=== PATIENT | female | born 1985 | race Caucasian/White ===

== ENCOUNTER 2016-11-18 18:16 | Emergency (ER) | payer BC ==
[2016-11-18 18:40] LABS: Bilirubin Negative (Negative); Blood, Urine Trace (Negative); Clarity Clear (Clear); Glucose, Urine (Dipstick) Negative (Negative); Leukocyte Negative (Negative); Nitrite Negative (Negative); Protein, Urine (Dipstick) 30 mg/dL (Neg-Trace); Urobilinogen 0.2 mg/dL (0.2-1.0); pH, Urine 7.5 (5.0-9.0)
[2016-11-18 18:50] LABS: Bacteria/HPF Rare-Few HPF (None Seen); RBC/HPF 0-3 HPF (0-3); Squamous Epithelial 0-3 HPF (0-3); WBC/HPF 0-3 HPF (0-3)
[2016-11-18 18:51] LABS: Pregu Control Bar Appear? YES (CONTROL BAR)
[2016-11-18] MEDS ORDERED: Dicyclomine HCl 20 mg/2 ml Ampule ONE (19:02)
[2016-11-18] MEDS ORDERED: Ketorolac Tromethamine 30 MG/ML VIAL ONE (19:02)
[2016-11-18] MEDS ORDERED: Sodium Chloride 0.9% 1,000 ML ONE (19:03)
[2016-11-18] MEDS ORDERED: Pantoprazole 40 MG VIAL ONE (19:03)
[2016-11-18] MEDS ORDERED: Sodium Chloride 0.9% 100 ML ONE (19:04)
[2016-11-18 19:27] LABS: #Basophils 0.1 thou/uL (0.0-0.2); #Lymphocytes 1.3 thou/uL (1.20-3.40); #Monocytes 0.5 thou/uL (0.11-0.59); #Neutrophils 12.4 thou/uL (1.40-6.50); %Basophils 0.4 % (0.0-1.0); %Eosinophils 0.1 % (0.0-10.0); %Lymphocytes 9.3 % (21.0-51.0); %Monocytes 3.6 % (0.0-10.0); %Neutrophils 86.6 % (42.0-75.0); Hemoglobin 14.2 g/dL (12.0-16.0); Mean Corpuscular HGB CONC 32.7 g/dL (32.0-36.0); Mean Corpuscular Hemoglobin 29.7 pg (27.0-31.0); Mean Platelet Volume 6.6 fL (7.4-10.4); Platelet Count 383 thou/uL (130-400); RBC Distribution Width 11.9 % (11.5-14.5); Red Blood Cell (RBC) Count 4.77 mill/uL (4.20-5.40); White Blood Cell (WBC) Count 14.3 thou/uL (4.8-10.8)
[2016-11-18] MEDS ORDERED: Ondansetron HCl/PF 4 MG/2 ML Vial ONE (19:38)
[2016-11-18 19:39] LABS: ALT (SGPT) 28 U/L (0-55); AST (SGOT) 29 U/L (5-34); Albumin 4.5 g/dL (3.5-5.0); Alkaline Phosphatase 73 U/L (40-150); Anion Gap 18 mmol/L (10-20); BUN (Urea Nitrogen) 9 mg/dL (7.0-18.7); Bilirubin, Total 0.4 mg/dL (0.2-1.2); Calc. Creatinine Clearance 0 mL/min (70-130); Calcium 9.6 mg/dL (7.8-10.44); Carbon Dioxide 17 mmol/L (22-29); Chloride 104 mmol/L (98-107); Estimated GFR-MDRD 90; Globulin 3.4 g/dL (2.4-3.5); Glucose 109 mg/dL (70-105); Lipase 23 U/L (8-78); Potassium 4.4 mmol/L (3.5-5.1); Protein, Total 7.9 g/dL (6.0-8.3); Sodium 135 mmol/L (136-145)
[2016-11-18] MEDS ORDERED: HYDROcodone/Acetaminophen 7.5/325 mg Tablet ONE ×2 (20:25)
--- NOTE | 2016-11-18 21:07 | CT ---
CT ABDOMEN AND PELVIS WITHOUT CONTRAST 11/18/16 COMPARISON: None. HISTORY: Left lower quadrant abdominal pain radiating to the back that began 5.5 hours ago. TECHNIQUE: Multiple contiguous axial images were obtained in a CT of the abdomen and pelvis without contrast. Coronal reformats were performed. FINDINGS: The liver, gallbladder, kidneys, adrenal glands, spleen, and pancreas are unremarkable although eval uation is limited without IV contrast. No hydronephrosis is seen. No calcifications are seen along t he course of the ureters or in either kidney. The large and small bowel are unremarkable. The appendix is not definitely seen. The reproductive or laura are unremarkable. No abdominal or pelvic lymphadenopathy are present. The osseous structures, visualized inferior thorax, and abdominal wall soft tissues are unremarkable . IMPRESSION: No evidence of acute intra-abdominal/pelvic abnormality. POS: TRISHA
== END 2016-11-18 20:42 | disposition home or self-care (01) ==
LOC: NAV ERS 18:16
DX: G89.29 Other chronic pain (principal); R10.32 Left lower quadrant pain; F41.9 Anxiety disorder, unspecified
CPT/HCPCS: 74176; 80053; 81003; 81015; 81025; 83605; 83690; 85025; 96361; 96365; 96372; 96375; C9113; J1885; J2405; J7050